=== PATIENT | female | born 1990 ===

== ENCOUNTER 2021-03-16 17:19 | Inpatient (IN) | payer MEDICAID ==
[2021-03-16] MEDS ORDERED: Carboprost Tromethamine 250 MCG/1 ML Amp IM PRN (19:25)
[2021-03-16] MEDS ORDERED: Sodium Chloride 0.9% 2.5 ML Syringe FLUSH PRN (19:25)
[2021-03-16] MEDS ORDERED: Butorphanol 1 MG/ML SDV IVPUSH PRN (19:25)
[2021-03-16] MEDS ORDERED: Lidocaine 1% 50 ML MDV INJECT PRN (19:25)
[2021-03-16] MEDS ORDERED: Methylergonovine 0.2 MG/1 ML Amp IM PRN (19:25)
[2021-03-16] MEDS ORDERED: Water For Irrigation,Sterile 1,000 ML Container IRR PRN (19:25)
[2021-03-16] MEDS ORDERED: Tranexamic Acid 1,000 MG in Sodium Chloride 0.9% 100 ML IV PRN (19:25)
[2021-03-16] MEDS ORDERED: Nalbuphine 10 MG/1 ML Vial IVPUSH PRN (19:25)
[2021-03-16] MEDS ORDERED: Sodium Chloride 0.9% 10 ML SDV IV PRN (19:25)
[2021-03-16] MEDS ORDERED: Misoprostol 200 MCG Tab PO PRN (19:25)
[2021-03-16] MEDS ORDERED: Sodium Chloride 0.9% 10 ML Syringe FLUSH PRN (19:25)
[2021-03-16] MEDS ORDERED: Oxytocin/0.9 % Sodium Chloride 30 UNIT/500 ML BAG IV SCH ×2 (19:30→20:00)
[2021-03-16] MEDS ORDERED: Ondansetron 4 MG Tab PO PRN (19:32)
[2021-03-16] MEDS ORDERED: Terbutaline 1 MG/ML SDV SUBCUT PRN (19:55)
[2021-03-16] MEDS: Lactated Ringers 1,000 ML IV SCH (22:02)
[2021-03-17] MEDS ORDERED: Ropivacaine HCl/PF 200 ML ONE (02:15)
[2021-03-17] MEDS ORDERED: fentaNYL 100 MCG/2 ML SDV ONE (02:15)
[2021-03-17] MEDS ORDERED: Benzocaine/Menthol 20%-0.5% Spray 78 GM Cannister TOP PRN (03:18)
[2021-03-17] MEDS ORDERED: Lanolin 100% Cream 7 GM Tube TOP PRN (03:18)
[2021-03-17] MEDS ORDERED: Bisacodyl 10 MG Supp RECTAL PRN (03:18)
[2021-03-17] MEDS ORDERED: Witch Hazel Medicated Pads 40/Jar TOP PRN (03:18)
--- NOTE | 2021-03-17 03:22 | PCM.DEL ---
L & D Note - General Info Date of Service: 03/17/21 Mother's Due Date: 03/23/21 - Delivery Note Labor: Augmented by Oxytocin Delivery Outcome: Livebirth Infant Delivery Method: Spontaneous Vaginal Delivery-Single Presentation: Vertex Nuchal Cord: None Anesthesia Type: Epidural Amniotic Fluid Description: Clear Episiotomy Type: None Laceration: None Placenta: Intact, Spontaneous Cord: 3 Vessels Estimated Blood Loss: 300 Resuscitation Needed: No Rugby: Bulb Syringe, Stimulated, Warmed Score 1 min: 8 Score 5 min: 9 Delivery Comments (Free Text/Narrative):: Live female , weight 3260g - General Info Date of Service: 03/17/21 - Patient Data Weight - Most Recent: 97.522 kg Lab Results Last 24 Hours: Laboratory Results - last 24 hr 03/16/21 03/16/21 03/16/21 Range/Units 17:50 21:10 21:10 WBC 10.49 (4.0-11.0) K/uL RBC 4.54 (4.30-5.90) M/uL Hgb 13.6 (12.0-16.0) g/dL Hct 39.6 (36.0-46.0) % MCV 87.2 (80.0-98.0) fL MCH 30.0 (27.0-32.0) pg MCHC 34.3 (31.0-37.0) g/dL RDW Std Deviation 46.9 (28.0-62.0) fl RDW Coeff of Aldo 15 (11.0-15.0) % Plt Count 189 (150-400) K/uL MPV 11.50 (7.40-12.00) fL Nucleated RBC % 0.0 /100WBC Nucleated RBCs # 0 K/uL Membrane Rupture POSITIVE SARS-CoV-2 RNA (JOAQUINA) (NEGATIVE) Blood Type A POSITIVE Antibody Screen NEGATIVE 03/16/21 Range/Units 21:10 WBC (4.0-11.0) K/uL RBC (4.30-5.90) M/uL Hgb (12.0-16.0) g/dL Hct (36.0-46.0) % MCV (80.0-98.0) fL MCH (27.0-32.0) pg MCHC (31.0-37.0) g/dL RDW Std Deviation (28.0-62.0) fl RDW Coeff of Aldo (11.0-15.0) % Plt Count (150-400) K/uL MPV (7.40-12.00) fL Nucleated RBC % /100WBC Nucleated RBCs # K/uL Membrane Rupture SARS-CoV-2 RNA (JOAQUINA) POSITIVE H (NEGATIVE) Blood Type Antibody Screen Med Orders - Current: Current Medications Acetaminophen (Acetaminophen 500 Mg Tab) 1,000 mg PO Q6H PRN PRN Reason: Pain (mild 1-3) Benzocaine/Menthol (Benzocaine/Menthol 20%-0.5% [place] 78 Gm Cannister) 78 gm TOP ASDIRECTED PRN PRN Reason: Perineal Comfort Measure Bisacodyl (Bisacodyl 10 Mg Supp) 10 mg RECTAL ONETIME PRN PRN Reason: Constipation Butorphanol Tartrate (Butorphanol 1 Mg/Ml Sdv) 1 mg IVPUSH Q1H PRN PRN Reason: Pain (severe 7-10) Last Admin: 03/17/21 00:43 Dose: 1 mg Documented by: Carboprost Tromethamine (Carboprost Tromethamine 250 Mcg/1 Ml Amp) 250 mcg IM ASDIRECTED PRN PRN Reason: Post Hemorrhage Docusate Sodium (Docusate Sodium 100 Mg Cap) 100 mg PO Q12H PRN PRN Reason: Constipation Emollient Ointment (Lanolin 100% Cream 7 Gm Tube) 0 gm TOP ASDIRECTED PRN PRN Reason: Sore Nipples Lactated Ringer's (Ringers, Lactated) 1,000 mls @ 150 mls/hr IV ASDIRECTED RICHARD Last Infusion: 03/17/21 02:10 Dose: 999 mls/hr Documented by: Oxytocin/Sodium Chloride (Oxytocin 30 Unit/500 Ml-Ns) 30 unit in 500 mls @ 999 mls/hr IV TITRATE RICHARD Tranexamic Acid 1,000 mg/ (Sodium Chloride) 110 mls @ 660 mls/hr IV ONETIME PRN PRN Reason: Bleeding Oxytocin/Sodium Chloride (Oxytocin 30 Unit/500 Ml-Ns) 30 unit in 500 mls @ 2 mls/hr IV TITRATE RICHARD; Protocol Last Titration: 03/17/21 01:38 Dose: 10 munits/min, 10 mls/hr Documented by: Ibuprofen (Ibuprofen 800 Mg Tab) 800 mg PO Q8H PRN PRN Reason: Pain (mild 1-3) Lidocaine HCl (Lidocaine 1% 50 Ml Mdv) 50 ml INJECT ONETIME PRN PRN Reason: Laceration repair Methylergonovine Maleate (Methylergonovine 0.2 Mg/1 Ml Amp) 0.2 mg IM ASDIRECTED PRN PRN Reason: Post Hemorrhage Misoprostol (Misoprostol 200 Mcg Tab) 200 mcg PO ONETIME PRN PRN Reason: Post Hemorrhage Nalbuphine HCl (Nalbuphine 10 Mg/1 Ml Vial) 10 mg IVPUSH Q1H PRN PRN Reason: Pain (severe 7-10) Ondansetron HCl (Ondansetron 4 Mg Tab) 4 mg PO Q6H PRN PRN Reason: Nausea/Vomiting Oxycodone HCl (Oxycodone 5 Mg Tab) 5 mg PO Q2H PRN PRN Reason: Pain (severe 7-10) Sodium Chloride (Sodium Chloride 0.9% 10 Ml Syringe) 10 ml FLUSH ASDIRECTED PRN PRN Reason: Keep Vein Open Sodium Chloride (Sodium Chloride 0.9% 2.5 Ml Syringe) 2.5 ml FLUSH ASDIRECTED PRN PRN Reason: Keep Vein Open Sodium Chloride (Sodium Chloride 0.9% 10 Ml Sdv) 10 ml IV ASDIRECTED PRN PRN Reason: IV Use Sterile Water (Water For Irrigation,Sterile 1,000 Ml Container) 1,000 ml IRR ASDIRECTED PRN PRN Reason: delivery Terbutaline Sulfate (Terbutaline 1 Mg/Ml Sdv) 0.25 mg SUBCUT ASDIRECTED PRN PRN Reason: Tacysystole Witch Charmaine (Witch Charmaine Medicated Pads 40/Jar) 1 pad TOP ASDIRECTED PRN PRN Reason: comfort care Discontinued Medications Fentanyl (Fentanyl 100 Mcg/2 Ml Sdv) Confirm Administered Dose 400 mcg .ROUTE .STK-MED ONE Stop: 03/17/21 02:16 Ropivacaine (Naropin 0.2%) Confirm Administered Dose 200 mls @ as directed .ROUTE .STK-MED ONE Stop: 03/17/21 02:16 - Problem List & Annotations (1) Vaginal delivery SNOMED Code(s): 862053704 Code(s): O80 - ENCOUNTER FOR FULL-TERM UNCOMPLICATED DELIVERY Status: Acute Current Visit: Yes - Problem List Review Problem List Initiated/Reviewed/Updated: Yes - My Orders Last 24 Hours: My Active Orders 03/16/21 17:32 Up ad Gema [RC] ASDIRECTED Vital Signs [RC] PER UNIT ROUTINE Resuscitation Status Routine 03/16/21 19:25 Patient Status [ADT] Routine May Shower [RC] ASDIRECTED Notify Provider [RC] PRN Butorphanol [Stadol] 1 mg IVPUSH Q1H PRN Carboprost Tromethamine [Hemabate DS] 250 mcg IM ASDIRECTED PRN Lidocaine 1% [Xylocaine 1%] 50 ml INJECT ONETIME PRN Methylergonovine [Methergine] 0.2 mg IM ASDIRECTED PRN Nalbuphine [Nubain] 10 mg IVPUSH Q1H PRN Sodium Chloride 0.9% [Normal Saline] 10 ml IV ASDIRECTED PRN Sodium Chloride 0.9% [Saline Flush] 10 ml FLUSH ASDIRECTED PRN Sodium Chloride 0.9% [Saline Flush] 2.5 ml FLUSH ASDIRECTED PRN Tranexamic Acid [Cyklokapron] 1,000 mg Sodium Chloride 0.9% [Normal Saline] 100 ml IV ONETIME Water For Irrigation,Sterile [Sterile Water for Irrigation] 1,000 ml IRR ASDIRECTED PRN miSOPROStoL [Cytotec] 200 mcg PO ONETIME PRN Scalp Electrode [WOMSER] Per Unit Routine Peripheral IV Insertion Adult [OM.PC] Routine 03/16/21 19:30 Lactated Ringers [Ringers, Lactated] 1,000 ml IV ASDIRECTED Oxytocin/0.9 % Sodium Chloride [Oxytocin 30 Unit/500 ML-NS] 30 unit in 500 ml IV TITRATE 03/16/21 19:32 Ondansetron [Zofran] 4 mg PO Q6H PRN 03/16/21 21:10 RPR (SYPHILIS SERO) W/ RFLX [REF] Routine 03/17/21 03:18 Patient Status [ADT] Routine Cooling Warming Measures [RC] ASDIRECTED May Shower [RC] ASDIRECTED Notify Provider Vital Signs [RC] ASDIRECTED Up ad Gema [RC] ASDIRECTED Vital Signs [RC] PER UNIT ROUTINE Acetaminophen [Tylenol Extra Strength] 1,000 mg PO Q6H PRN Benzocaine/Menthol [Dermoplast Pain Relief 20%-0.5% [place]] 78 gm TOP ASDIRECTED PRN Docusate Sodium [Colace] 100 mg PO Q12H PRN Ibuprofen [Motrin] 800 mg PO Q8H PRN Lanolin [Lansinoh HPA] See Dose Instructions TOP ASDIRECTED PRN bisacodyL [Dulcolax] 10 mg RECTAL ONETIME PRN oxyCODONE 5 mg PO Q2H PRN witch Charmaine [Tucks] 1 pad TOP ASDIRECTED PRN Assess Lochia [WOMSER] Per Unit Routine Assess Uterine Involution [WOMSER] Per Unit Routine Breast Pump [WOMSER] Per Unit Routine Ice Therapy [OM.PC] Per Unit Routine Perineal Care [OM.PC] Per Unit Routine Peripheral IV Discontinue [OM.PC] Routine Sitz Bath [OM.PC] Per Unit Routine 03/17/21 Breakfast Regular Diet [DIET] 03/18/21 05:11 HEMOGLOBIN/HEMATOCRIT,HH [HEME] Timed - Assessment Assessment:: 31yo s/p at 39w1d - Plan Plan:: Admit to unit for routine care. Rh positive, Rubella immune, GBS negative
[2021-03-17] MEDS ORDERED: ePHEDrine 50 MG/ML SDV ONE (03:31)
--- NOTE | 2021-03-17 03:45 | PCM.PREANE ---
Preanesthetic Assessment - Procedure Proposed Procedure: LASHELL for active labor - Anesthesia/Transfusion/Family Hx Anesthesia History: Prior Anesthesia Reaction (ovarian cystectomy, T&A, prev. epidural, denies anesthesia complications except for low BP with epidural.) Other Type of Anesthesia Reaction Comment: Low blood pressure, feeling sick Family History of Anesthesia Reaction: No Transfusion History: No Prior Transfusion(s) Type of Transfusion Reactions: Reports: Unknown Additional History: obesity - Review of Systems General: No Symptoms Pulmonary: No Symptoms Cardiovascular: No Symptoms Gastrointestinal: No Symptoms Neurological: No Symptoms Other: Reports: None - Physical Assessment NPO Status Date: 03/16/21 (except for clear liquids) NPO Status Time: 19:00 Height: 1.6 m Weight: 97.522 kg ASA Class: 2 Mental Status: Alert & Oriented x3 Airway Class: Mallampati = 2 Dentition: Reports: Normal Dentition Thyro-Mental Finger Breadths: 4 Mouth Opening Finger Breadths: 3 ROM/Head Extension: Full Lungs: Normal Respiratory Effort Cardiovascular: Regular Rate, Regular Rhythm - Lab Values: Laboratory Last Values WBC 10.49 K/uL (4.0-11.0) 03/16/21 21:10 RBC 4.54 M/uL (4.30-5.90) 03/16/21 21:10 Hgb 13.6 g/dL (12.0-16.0) 03/16/21 21:10 Hct 39.6 % (36.0-46.0) 03/16/21 21:10 MCV 87.2 fL (80.0-98.0) 03/16/21 21:10 MCH 30.0 pg (27.0-32.0) 03/16/21 21:10 MCHC 34.3 g/dL (31.0-37.0) 03/16/21 21:10 RDW Std Deviation 46.9 fl (28.0-62.0) 03/16/21 21:10 RDW Coeff of Aldo 15 % (11.0-15.0) 03/16/21 21:10 Plt Count 189 K/uL (150-400) 03/16/21 21:10 MPV 11.50 fL (7.40-12.00) 03/16/21 21:10 Nucleated RBC % 0.0 /100WBC 03/16/21 21:10 Nucleated RBCs # 0 K/uL 03/16/21 21:10 Membrane Rupture POSITIVE 03/16/21 17:50 SARS-CoV-2 RNA (JOAQUINA) POSITIVE (NEGATIVE) H 03/16/21 21:10 Blood Type A POSITIVE 03/16/21 21:10 Antibody Screen NEGATIVE 03/16/21 21:10 - Allergies Allergies/Adverse Reactions: Allergies Allergy/AdvReac Type Severity Reaction Status Date / Time Sulfa (Sulfonamide Allergy Hives Verified 03/16/21 19:22 Antibiotics) Seasonal Allergy Hives Uncoded 03/16/21 19:24 - Acknowledgements Anesthesia Type Planned: Epidural Pt an Appropriate Candidate for the Planned Anesthesia: Yes Alternatives and Risks of Anesthesia Discussed w Pt/Guardian: Yes Pt/Guardian Understands and Agrees with Anesthesia Plan: Yes Additional Comments: Discussed epidural risks, benefits, alternatives, procedure, and CHEMICAL ETCH OPERATOR. All questions answered and concerns addressed. Consented with RN witness. PreAnesthesia Questionnaire HEENT History: Reports: Sinusitis Cardiovascular History: Reports: None Respiratory History: Reports: None Gastrointestinal History: Reports: None Genitourinary History: Reports: None COUNTER SERVER History: Reports: Musculoskeletal History: Reports: None Neurological History: Reports: None Psychiatric History: Reports: None Endocrine/Metabolic History: Reports: None Hematologic History: Reports: None Immunologic History: Reports: None Oncologic (Cancer) History: Reports: None Dermatologic History: Reports: None - Infectious Disease History Infectious Disease History: Reports: Chicken Pox - Past Surgical History Head Surgeries/Procedures: Reports: None HEENT Surgical History: Reports: Adenoidectomy, Tonsillectomy Cardiovascular Surgical History: Reports: None Respiratory Surgical History: Reports: None GI Surgical History: Reports: None Female Surgical History: Reports: Other (See Below) Other Female Surgeries/Procedures: ovarian cyst removal Endocrine Surgical History: Reports: None Neurological Surgical History: Reports: None Musculoskeletal Surgical History: Reports: None Oncologic Surgical History: Reports: None Dermatological Surgical History: Reports: None - SUBSTANCE USE Tobacco Use Status *Q: Never Tobacco User Second Hand Smoke Exposure: No Recreational Drug Use History: Yes Recreational Drug Type: Reports: Marijuana/Hashish - CURRENT (IN HOUSE) MEDS Current Meds: Current Medications Acetaminophen (Acetaminophen 500 Mg Tab) 1,000 mg PO Q6H PRN PRN Reason: Pain (mild 1-3) Benzocaine/Menthol (Benzocaine/Menthol 20%-0.5% [place] 78 Gm Cannister) 78 gm TOP ASDIRECTED PRN PRN Reason: Perineal Comfort Measure Bisacodyl (Bisacodyl 10 Mg Supp) 10 mg RECTAL ONETIME PRN PRN Reason: Constipation Butorphanol Tartrate (Butorphanol 1 Mg/Ml Sdv) 1 mg IVPUSH Q1H PRN PRN Reason: Pain (severe 7-10) Last Admin: 03/17/21 00:43 Dose: 1 mg Documented by: Carboprost Tromethamine (Carboprost Tromethamine 250 Mcg/1 Ml Amp) 250 mcg IM ASDIRECTED PRN PRN Reason: Post Hemorrhage Docusate Sodium (Docusate Sodium 100 Mg Cap) 100 mg PO Q12H PRN PRN Reason: Constipation Emollient Ointment (Lanolin 100% Cream 7 Gm Tube) 0 gm TOP ASDIRECTED PRN PRN Reason: Sore Nipples Lactated Ringer's (Ringers, Lactated) 1,000 mls @ 150 mls/hr IV ASDIRECTED RICHARD Last Infusion: 03/17/21 02:10 Dose: 999 mls/hr Documented by: Oxytocin/Sodium Chloride (Oxytocin 30 Unit/500 Ml-Ns) 30 unit in 500 mls @ 999 mls/hr IV TITRATE RICHARD Tranexamic Acid 1,000 mg/ (Sodium Chloride) 110 mls @ 660 mls/hr IV ONETIME PRN PRN Reason: Bleeding Oxytocin/Sodium Chloride (Oxytocin 30 Unit/500 Ml-Ns) 30 unit in 500 mls @ 2 mls/hr IV TITRATE RICHARD; Protocol Last Titration: 03/17/21 01:38 Dose: 10 munits/min, 10 mls/hr Documented by: Ibuprofen (Ibuprofen 800 Mg Tab) 800 mg PO Q8H PRN PRN Reason: Pain (mild 1-3) Lidocaine HCl (Lidocaine 1% 50 Ml Mdv) 50 ml INJECT ONETIME PRN PRN Reason: Laceration repair Methylergonovine Maleate (Methylergonovine 0.2 Mg/1 Ml Amp) 0.2 mg IM ASDIRECTED PRN PRN Reason: Post Hemorrhage Misoprostol (Misoprostol 200 Mcg Tab) 200 mcg PO ONETIME PRN PRN Reason: Post Hemorrhage Nalbuphine HCl (Nalbuphine 10 Mg/1 Ml Vial) 10 mg IVPUSH Q1H PRN PRN Reason: Pain (severe 7-10) Ondansetron HCl (Ondansetron 4 Mg Tab) 4 mg PO Q6H PRN PRN Reason: Nausea/Vomiting Oxycodone HCl (Oxycodone 5 Mg Tab) 5 mg PO Q2H PRN PRN Reason: Pain (severe 7-10) Sodium Chloride (Sodium Chloride 0.9% 10 Ml Syringe) 10 ml FLUSH ASDIRECTED PRN PRN Reason: Keep Vein Open Sodium Chloride (Sodium Chloride 0.9% 2.5 Ml Syringe) 2.5 ml FLUSH ASDIRECTED PRN PRN Reason: Keep Vein Open Sodium Chloride (Sodium Chloride 0.9% 10 Ml Sdv) 10 ml IV ASDIRECTED PRN PRN Reason: IV Use Sterile Water (Water For Irrigation,Sterile 1,000 Ml Container) 1,000 ml IRR ASDIRECTED PRN PRN Reason: delivery Terbutaline Sulfate (Terbutaline 1 Mg/Ml Sdv) 0.25 mg SUBCUT ASDIRECTED PRN PRN Reason: Tacysystole Witch Charmaine (Witch Charmaine Medicated Pads 40/Jar) 1 pad TOP ASDIRECTED PRN PRN Reason: comfort care Discontinued Medications Ephedrine Sulfate (Ephedrine 50 Mg/Ml Sdv) Confirm Administered Dose 50 mg .ROUTE .STK-MED ONE Stop: 03/17/21 03:32 Fentanyl (Fentanyl 100 Mcg/2 Ml Sdv) Confirm Administered Dose 400 mcg .ROUTE .STK-MED ONE Stop: 03/17/21 02:16 Ropivacaine (Naropin 0.2%) Confirm Administered Dose 200 mls @ as directed .ROUTE .STK-MED ONE Stop: 03/17/21 02:16
--- NOTE | 2021-03-17 03:57 | PCM.SN.2 ---
- Free Text/Narrative Note: Anesthesia time 03/17/21 [id number] 0220- To LDR 5, thorough H&P with patient cooperation. Labs and chart reviewed. Discussed epidural risks, benefits, alternatives, procedure, and LITHARGE MILL OPERATOR. All questions answered and concerns addressed. 0225- Consent signed with RN witness. 0232- Sitting position, ASA monitors on, VSS. Time-out. 0234- Sterile procedure employed (gloves, hat), chlorhexidine prep., sterile plastic drape. 0237- Localized with lido 1% at L3-4 0238- Attempt unsuccessful at L3-4 (hit os). Localized L2-3, successful attempt. JLUIS with saline at 9 cm 0240- catheter threaded without resistance to 13 cm. No paresthesias. 0242- Negative to aspiration for both CSF and heme, test dose negative. 0247- Bolus dose (6ml Ropivicaine 0.2% with 2 mcg/ml fentanyl) and continuous infusion started (8 ml/hr ropivicaine 0.2% with 2 mcg/ml fentanyl, 4ml LITHARGE MILL OPERATOR option every 10 min, hourly lockout 34ml). Education provided on LITHARGE MILL OPERATOR, verbalized understanding. In procedure directly after, but RN reported Adequate pain control with T0 level and VSS at 0305.
[2021-03-17] MEDS: Lactated Ringers 1,000 ML IV SCH (04:04)
--- NOTE | 2021-03-17 04:04 | PCM.SN.2 ---
- Free Text/Narrative Note: Post-epidural BP management Anesthesia time [id number] RN paged to bedside 328 for low BP. Pt post-delivery, and epidural had been stopped for approx. 5 min. BP 83/43 with HR 52, pt nauseous and vomiting. Ordered 500ml bolus (running). No excessive lexa bleeding per RN. Went to get medication, and on return (331) BP 69/29, HR 48. 15mg ephedrine administered IV. Pt states she feels faint, but is oriented and communicative. 339- BP 105/58. Nausea subsided. HR 63. One additional 5mg ephedrine dose given. RN instructed to continue monitoring VS at least Q5min for 30min and notify SUPERVISOR [employer]BUILD[employer]OD of BP<90 or symptomatic. 347- Reassessed. VSS (see RN EMR charting). Pt asymptomatic.
[2021-03-17] MEDS: Acetaminophen 500 MG Tab PO PRN ×3 (04:48→19:13)
--- NOTE | 2021-03-17 04:48 | OR ---
SURGEON: Lenora Nichols MD DATE OF PROCEDURE: 03/17/2021 PREOPERATIVE DIAGNOSES: 1. A 31-year-old 4, para 1-0-2-1 at 39 weeks and 0 days' gestation. 2. Prelabor rupture of membranes. 3. Augmentation of labor. 4. Group B Streptococcus negative. 5. left ventricle echogenic focus with negative cell-free DNA. POSTOPERATIVE DIAGNOSES: 1. A 31-year-old 4, para 2-0-2-2 at 39 weeks and 1 days' gestation. 2. Prelabor rupture of membranes. 3. Augmentation of labor. 4. Group B Streptococcus negative. 5. left ventricle echogenic focus with negative cell-free DNA. PROCEDURE: Spontaneous vaginal delivery. PRIMARY SURGEON: Lenora Nichols MD ANESTHESIA: Epidural. ESTIMATED BLOOD LOSS: 300 mL. FINDINGS: Live female in cephalic presentation. score of 8 and 9 at one and five minutes respectively. Weight 3220 g. Placenta intact with normal 3-vessel cord. INDICATIONS: This is a 31-year-old, G4, P 1-0-2-1, who presented at 39 weeks and 0 days' gestation complaining of rupture of membranes. Upon presentation, rupture of membranes was confirmed, and her cervix was found to be 3 cm dilated. She was not manish regularly. She walked in the alberto and after 2 hours her cervix did not change. She was started on Pitocin for augmentation of labor. At 8 to 9 cm dilated, she received an epidural for pain control. She quickly progressed to complete cervical dilation. DESCRIPTION OF PROCEDURE: I was in the room while the patient received her epidural and checked her shortly after epidural placement. She was found to have complete cervical dilation, head at +2 station. Over the next 3 contractions, the patient pushed and delivered a live male. The head was delivered followed quickly by the shoulders and remainder of the body. The infant was placed on the maternal abdomen. After approximately 60 seconds, the cord was clamped and cut. Cord blood was obtained. The placenta then delivered intact with 3-vessel cord via the Velazquez-Bautista maneuver. The perineum was inspected and no lacerations were noted. The fundus was firm below the umbilicus with minimal bleeding. The patient and tolerated the delivery well. [id number] / MODL /[id number] MTDD
[2021-03-17] MEDS: Docusate Sodium 100 MG Cap PO PRN ×2 (04:49→19:13)
--- NOTE | 2021-03-17 11:25 | PCM48HPAN ---
Post Anesthesia Note - EVALUATION WITHIN 48HRS OF ANESTHETIC Vital Signs in Normal Range: Yes (Hypotension immediately post-delivery resolved, VSS throughout night.) Patient Participated in Evaluation: Yes Respiratory Function Stable: Yes Airway Patent: Yes Cardiovascular Function Stable: Yes Hydration Status Stable: Yes Pain Control Satisfactory: Yes (Denies pain) Nausea and Vomiting Control Satisfactory: Yes (Denies nausea/vomiting, tolerating PO well) Mental Status Recovered: Yes Vital Signs: Last Vital Signs Temp 36.4 C 03/17/21 08:30 Pulse 55 L 03/17/21 08:30 Resp 16 03/17/21 08:30 BP 115/65 03/17/21 08:30 Pulse Ox 99 03/17/21 08:30 - COMMENTS/OBSERVATIONS Free Text/Narrative:: Ambulating without difficulty, reports full return of strength and sensation to BLE.
[2021-03-17] MEDS: Ibuprofen 800 MG Tab PO PRN ×2 (15:13→23:25)
[2021-03-17] MEDS: oxyCODONE 5 MG Tab PO PRN ×2 (19:13→23:27)
[2021-03-18] MEDS: Acetaminophen 500 MG Tab PO PRN (01:16)
[2021-03-18] MEDS: oxyCODONE 5 MG Tab PO PRN ×2 (04:00→09:10)
--- NOTE | 2021-03-18 05:47 | PCM.SN.2 ---
- Free Text/Narrative Note: Consult requested for severe headache. Anesthesia time [id number] Pt reporting symptoms of severe occipital LEWIS with neck pain unresponsive to pain medication. Moderate relief when lying flat. Also reports tenderness and aching pain at epidural site (worse with activity). Epidural site examined. No redness or ecchymosis noted, soft, no bleeding or discharge. Pt denies LE weakness, numbness, tingling, or other neurologic symptoms. VSS. Pt denies visual changes or photosensitivity (though she is keeping the room dark). Pupils equal and reactive. Both upper and lower extremity strength equal/strong. Alert, conversant, and oriented. Suspect PDPH (based on symptoms, as there was no CSF to aspiration when epidural was placed). As a precaution, I discussed the signs/symptoms of epidural hematoma with patient and encouraged immediate reporting of neurologic LE symptoms (numbness, weakness, "pins and needles", and sudden sharp or worsening back pain. Also discussed PDPH at length, as well as treatment options. Encouraged oral hydration. IV fentanyl ordered. Discussed epidural blood patch, which pt is a menable to. Will reassess in a few hours, and will proceed with procedure if symptoms persist. Neuro checks hourly ordered. Discussed the above fully with RN, and she knows to report any neurologic changes.
[2021-03-18] MEDS ORDERED: fentaNYL 50 MCG/ML SDV IVPUSH PRN (05:53)
[2021-03-18] MEDS ORDERED: fentaNYL 100 MCG/2 ML SDV ONE ×2 (06:11→10:23)
[2021-03-18] MEDS: Docusate Sodium 100 MG Cap PO PRN (08:54)
[2021-03-18] MEDS: Ibuprofen 800 MG Tab PO PRN (08:54)
--- NOTE | 2021-03-18 09:12 | PCM.PNPP ---
- General Info Date of Service: 03/18/21 Subjective Update: Patient with spinal headache. Otherwise, voiding, tolerating oral intake, and abdominal cramping controlled. Functional Status: Reports: Tolerating Diet, Ambulating, Urinating - Review of Systems General: Reports: No Symptoms HEENT: Reports: Headaches Pulmonary: Reports: No Symptoms Cardiovascular: Reports: No Symptoms Gastrointestinal: Reports: No Symptoms Genitourinary: Reports: No Symptoms Musculoskeletal: Reports: No Symptoms Skin: Reports: No Symptoms Neurological: Reports: No Symptoms Psychiatric: Reports: No Symptoms - Patient Data Vital Signs - Most Recent: Last Vital Signs Temp 36.1 C 03/18/21 07:45 Pulse 56 L 03/18/21 07:45 Resp 13 03/18/21 07:45 BP 109/79 03/18/21 07:45 Pulse Ox 99 03/18/21 08:50 Weight - Most Recent: 97.522 kg Lab Results - Last 24 Hours: Laboratory Results - last 24 hr 03/18/21 Range/Units 06:25 Hgb 13.8 (12.0-16.0) g/dL Hct 41.2 (36.0-46.0) % Med Orders - Current: Current Medications Acetaminophen (Acetaminophen 500 Mg Tab) 1,000 mg PO Q6H PRN PRN Reason: Pain (mild 1-3) Last Admin: 03/18/21 01:16 Dose: 1,000 mg Documented by: Acetaminophen/Butalbital/Caffeine (Acetaminophen/Butalbital/Caffeine 325-50-40 Mg Tab) 2 tab PO Q6H PRN PRN Reason: Headache Benzocaine/Menthol (Benzocaine/Menthol 20%-0.5% Leopold 78 Gm Cannister) 78 gm TOP ASDIRECTED PRN PRN Reason: Perineal Comfort Measure Last Admin: 03/17/21 04:51 Dose: 1 canister Documented by: Bisacodyl (Bisacodyl 10 Mg Supp) 10 mg RECTAL ONETIME PRN PRN Reason: Constipation Butorphanol Tartrate (Butorphanol 1 Mg/Ml Sdv) 1 mg IVPUSH Q1H PRN PRN Reason: Pain (severe 7-10) Last Admin: 03/17/21 00:43 Dose: 1 mg Documented by: Carboprost Tromethamine (Carboprost Tromethamine 250 Mcg/1 Ml Amp) 250 mcg IM ASDIRECTED PRN PRN Reason: Post Hemorrhage Docusate Sodium (Docusate Sodium 100 Mg Cap) 100 mg PO Q12H PRN PRN Reason: Constipation Last Admin: 03/18/21 08:54 Dose: 100 mg Documented by: Emollient Ointment (Lanolin 100% Cream 7 Gm Tube) 0 gm TOP ASDIRECTED PRN PRN Reason: Sore Nipples Fentanyl (Fentanyl 50 Mcg/Ml Sdv) 50 mcg IVPUSH SEECOMMENT PRN PRN Reason: Pain Stop: 03/19/21 05:54 Lactated Ringer's (Ringers, Lactated) 1,000 mls @ 150 mls/hr IV ASDIRECTED RICHARD Last Admin: 03/17/21 04:04 Dose: 600 mls/hr Documented by: Oxytocin/Sodium Chloride (Oxytocin 30 Unit/500 Ml-Ns) 30 unit in 500 mls @ 999 mls/hr IV TITRATE RICHARD Tranexamic Acid 1,000 mg/ (Sodium Chloride) 110 mls @ 660 mls/hr IV ONETIME PRN PRN Reason: Bleeding Oxytocin/Sodium Chloride (Oxytocin 30 Unit/500 Ml-Ns) 30 unit in 500 mls @ 2 mls/hr IV TITRATE RICHARD; Protocol Last Titration: 03/17/21 03:04 Dose: 999 munits/min, 999 mls/hr Documented by: Ibuprofen (Ibuprofen 800 Mg Tab) 800 mg PO Q8H PRN PRN Reason: Pain (mild 1-3) Last Admin: 03/18/21 08:54 Dose: 800 mg Documented by: Lidocaine HCl (Lidocaine 1% 50 Ml Mdv) 50 ml INJECT ONETIME PRN PRN Reason: Laceration repair Methylergonovine Maleate (Methylergonovine 0.2 Mg/1 Ml Amp) 0.2 mg IM ASDIRECTED PRN PRN Reason: Post Hemorrhage Misoprostol (Misoprostol 200 Mcg Tab) 200 mcg PO ONETIME PRN PRN Reason: Post Hemorrhage Nalbuphine HCl (Nalbuphine 10 Mg/1 Ml Vial) 10 mg IVPUSH Q1H PRN PRN Reason: Pain (severe 7-10) Ondansetron HCl (Ondansetron 4 Mg Tab) 4 mg PO Q6H PRN PRN Reason: Nausea/Vomiting Oxycodone HCl (Oxycodone 5 Mg Tab) 5 mg PO Q2H PRN PRN Reason: Pain (severe 7-10) Last Admin: 03/18/21 04:00 Dose: 5 mg Documented by: Sodium Chloride (Sodium Chloride 0.9% 10 Ml Syringe) 10 ml FLUSH ASDIRECTED PRN PRN Reason: Keep Vein Open Sodium Chloride (Sodium Chloride 0.9% 2.5 Ml Syringe) 2.5 ml FLUSH ASDIRECTED PRN PRN Reason: Keep Vein Open Sodium Chloride (Sodium Chloride 0.9% 10 Ml Sdv) 10 ml IV ASDIRECTED PRN PRN Reason: IV Use Sterile Water (Water For Irrigation,Sterile 1,000 Ml Container) 1,000 ml IRR ASDIRECTED PRN PRN Reason: delivery Terbutaline Sulfate (Terbutaline 1 Mg/Ml Sdv) 0.25 mg SUBCUT ASDIRECTED PRN PRN Reason: Tacysystole Witch Charmaine (Witch Charmaine Medicated Pads 40/Jar) 1 pad TOP ASDIRECTED PRN PRN Reason: comfort care Last Admin: 03/17/21 04:50 Dose: 1 tub Documented by: Discontinued Medications Ephedrine Sulfate (Ephedrine 50 Mg/Ml Sdv) Confirm Administered Dose 50 mg .ROUTE .STK-MED ONE Stop: 03/17/21 03:32 Fentanyl (Fentanyl 100 Mcg/2 Ml Sdv) Confirm Administered Dose 400 mcg .ROUTE .STK-MED ONE Stop: 03/17/21 02:16 Last Admin: 03/17/21 07:43 Dose: Not Given Documented by: Fentanyl (Fentanyl 100 Mcg/2 Ml Sdv) Confirm Administered Dose 100 mcg .ROUTE .STK-MED ONE Stop: 03/18/21 06:12 Last Admin: 03/18/21 06:15 Dose: 100 mcg Documented by: Ropivacaine (Naropin 0.2%) Confirm Administered Dose 200 mls @ as directed .ROUTE .STK-MED ONE Stop: 03/17/21 02:16 Last Admin: 03/17/21 07:43 Dose: Not Given Documented by: - Infant Interaction Infant Disposition, : [facility] in Room with Family Infant Feeding: Bottle Fed Infant Support Person: - Recovery Exam Fundal Tone: Firm Fundal Level: 1 Fingerbreadths Below Umbilicus Fundal Placement: Midline Lochia Amount: Scant Episiotomy/Laceration: None Bladder Status: Voiding Urinary Elimination: Voided - Exam General: Alert, Oriented Neck: Supple Lungs: Normal Respiratory Effort GI/Abdominal Exam: Soft, Non-Tender, No Distention Extremities: Non-Tender Skin: Warm, Dry, Intact Neurological: No New Focal Deficit Psy/Mental Status: Alert, Normal Affect, Normal Mood - Problem List & Annotations (1) Vaginal delivery SNOMED Code(s): 920845140 Code(s): O80 - ENCOUNTER FOR FULL-TERM UNCOMPLICATED DELIVERY Status: Acute Current Visit: Yes - Problem List Review Problem List Initiated/Reviewed/Updated: Yes - My Orders Last 24 Hours: My Active Orders 03/18/21 09:05 Acetaminophen/Butalbital/Caff [Fioricet 325-50-40 MG] 2 tab PO Q6H PRN - Assessment Assessment:: 31yo s/p at 39w1d, PPD#1 - Plan Plan:: Continue routine care. Anesthesia has been consulted regarding spinal headache, IV Fentanyl ordered and considering blood patch. I have also ordered Esgic with caffeine. Rh positive, Rubella immune, GBS negative Patient desires discharge home today if headache improves. Will reassess this afternoon.
[2021-03-18] MEDS ORDERED: Acetaminophen/Butalbital/Caffeine 325-50-40 MG Tab PO PRN (09:15)
[2021-03-18] MEDS ORDERED: ePHEDrine 50 MG/ML SDV ONE (10:22)
[2021-03-18] MEDS ORDERED: Glycopyrrolate 0.2 MG/ML SDV ONE (10:22)
[2021-03-18] MEDS ORDERED: Midazolam 1 MG/ML 2 ML SDV ONE (10:23)
[2021-03-18] MEDS ORDERED: Sodium Chloride 0.9% 20 ML ONE (10:24)
--- NOTE | 2021-03-18 11:47 | PCM.SN.2 ---
- Free Text/Narrative Note: Procedure note: Epidural blood patch Anesthesia time 5317-9219 1056- To PP2, reviewed H&P with patient and verified no changes except for PDPH (LEWIS and nucal pain 9/10 sitting, 3/10 supine with lights off). Labs and chart reviewed. Discussed epidural blood patch, possibility of light sedation with fentanyl and midazolam, IV start, and autologous blood draw with patient. Discussed risks, benefits, alternatives, and procedure. All questions answered and concerns addressed. 1100- Consent signed with RN witness. 1102- BP, pulse ox., EKG, and BP monitors on (BP cycled at least Q5min), VSS. Sinus shanthi (50's) per baseline. 1110- Time-out. HR occasionally dropping to 40's. Glycopyrrolate 0.4mg given, as well as 50mcg fentanyl. 1112- 14g IV started in [facility] using ultrasound. Right arm then prepped and draped in sterile fashion (including hat and sterile gloves) using chlorhexidine and sterile cloth drapes. 1119- New sterile gloves donned, back prepped with chlorhexidine prep., sterile plastic drape. 1122- Localized with lido 1% at L3-4 1123- 1st attempt successful at L3-4 using 17g Tuohy needle. JLUIS with saline at 7 cm. Aspiration through needle negative for CSF and heme. No paresthesias. Test dose given through needle (3ml 1.5% lido with 1:200,000 epi), confirmed negative at 1128. 1128- Autologous blood drawn from RAC #14g IV, maintaining sterility (5ml waste, 20ml drawn in sterile syringe). 1130- Aspiration of epidural needle repeated, remained negative for both CSF and heme. Autologous blood injected through needle slowly, and pt instructed to report pressure/fullness/pain. 20ml injected in total. 1132- patient reports near immediate improvement of head/neck pain symptoms. VSS throughout. See RN charting/ EMR for VS. Pt to lay flat for 30 min. Orders given for post-procedure monitoring (VS Q 5 min for 30 min, Q15 for one hour after, and then Q30 min prior to discharge), discharge timeline (2 hrs after initial 30min recovery period, if VSS and symptoms relieved). Pt educated on lifting restrictions. 1155- Reassessed. Pt reports full relief from symptoms. Full leg strength and sensation following test dose. No neurologic symptoms. VSS.
--- NOTE | 2021-03-18 14:32 | PCM.SN.2 ---
- Free Text/Narrative Note: Patient tolerated blood patch and has been feeling very well since. Denies headache. Sitting up in room eating lunch. She desires discharge home today, reviewed discharge instructions/precautions. All questions answered.
--- NOTE | 2021-03-19 07:18 | PCM48HPAN ---
Post Anesthesia Note - EVALUATION WITHIN 48HRS OF ANESTHETIC Vital Signs in Normal Range: Yes Patient Participated in Evaluation: Yes Respiratory Function Stable: Yes Airway Patent: Yes Cardiovascular Function Stable: Yes Hydration Status Stable: Yes Pain Control Satisfactory: Yes (Reports total relief from head/neck pain, occ. abd pain of 2-3/10) Nausea and Vomiting Control Satisfactory: Yes (Denies nausea, taking PO well) Mental Status Recovered: Yes Vital Signs: Last Vital Signs Temp 36.6 C 03/18/21 13:00 Pulse 67 03/18/21 13:00 Resp 14 03/18/21 13:00 BP 113/62 03/18/21 13:00 Pulse Ox 98 03/18/21 13:00 - COMMENTS/OBSERVATIONS Free Text/Narrative:: Ambulating without difficulty. Reports full return of strength and sensation to BLE.
== END 2021-03-18 16:00 | disposition home or self-care (01) | DRG 805 ==
LOC: MW.OBCHECK 17:19 → MW.OB 19:25 → OBSVTOIN 03-17 03:04 → MW.OB 03-17 06:13
PROVIDERS: ADMIT Obstetrics & Gynecology; ATTEND Obstetrics & Gynecology
PROC: 10E0XZZ Delivery of Products of Conception, External Approach (ICD-10-PCS; principal; 2021-03-17)
PROC: 3E0R3BZ Introduction of Anesthetic Agent into Spinal Canal, Percutaneous Approach (ICD-10-PCS; 2021-03-17)
PROC: 00HU33Z Insertion of Infusion Device into Spinal Canal, Percutaneous Approach (ICD-10-PCS; 2021-03-17)
DX: O42.92 Full-term premature rupture of membranes, unspecified as to length of time between rupture and onset of labor (principal); U07.1 COVID-19; Z37.0 Single live birth; O98.52 Other viral diseases complicating childbirth; Z3A.39 39 weeks gestation of pregnancy
CPT/HCPCS: 36415; 59025; 59409; 84112; 85014; 85018; 85027; 86592; 86850; 86900; 86901; A9270-GY; J0595; J2250; J2590; J3010; J3490; J7120; U0002